=== PATIENT | male | born 1955 | race Caucasian/White ===

== ENCOUNTER → 2021-05-26 10:06 | Outpatient (CLI) | payer OTHER, SELFPAY ==
[2021-05-26 12:26] LABS: COVID19 -Nasal RAPID Negative (Negative)
== END ==
PROVIDERS: Referring Provider Orthopaedic Surgery; Visit Provider Family Medicine Sleep Medicine
DX: Z20.822 Contact with and (suspected) exposure to COVID-19 (principal)
CPT/HCPCS: 87635; C9803

== ENCOUNTER 2021-05-27 06:24 | Day surgery (SDC) | payer OTHER, SELFPAY ==
[2021-05-18 12:35] VITALS: BMI 41.9
[2021-05-27] VITALS (14 sets, daily range): BP systolic 128–166; BP diastolic 80–96; PULSE 50–75; RESP 12–16; TEMP 36–37; O2SAT 90–98; BMI 41.9
--- NOTE | 2021-05-27 06:35 | DI.RAD.S_ITS ---
PROCEDURE: XR KNEE RT 1TO2V INDICATIONS: prosthesis placement TECHNIQUE: 2 view(s) of the knee acquired. COMPARISON: None. FINDINGS: Bones: Patient is status post knee joint arthroplasty. Hardware components are in expected positions. Visualized bony structures are intact. Soft tissues: Overlying postoperative changes are noted. IMPRESSION: Well-positioned total knee arthroplasty Approved by: Tapan Nunn M.D. on 05/27/2021 at 11:49
[2021-05-27] MEDS: CELECOXIB 200 MG CAPSULE PO (07:02)
[2021-05-27] MEDS: ACETAMINOPHEN 325 MG TABLET 975 MG PO (07:02)
[2021-05-27] MEDS: LACTATED RINGERS 1,000 ML 42 ML IV (07:03)
--- NOTE | 2021-05-27 07:15 | PM.PREOP ---
Pre-operative Note COVID-19 COVID-19 status: Negative Result date/Date tested (Pos, Neg/Pending): 05/26/21 Interval Note History & Physical reviewed/Exam performed by Physician: Yes Changes to H&P: No
--- NOTE | 2021-05-27 07:15 | PM.OP.1 ---
Operative Date/Time/Diagnoses Date of procedure: 05/27/21 Time of procedure: 09:30 Pre-op diagnosis: Right knee osteoarthritis Post-op diagnosis: same Procedure & Clinicians Procedure: Right total knee replacement Same procedure as scheduled: Yes Indications: The patient has had progressively worsening right knee pain with radiographic changes consistent with arthritis. Non-operative management has failed and the patient has requested total knee replacement. The risks, benefits and alternatives to surgery were discussed with the patient prior to proceeding. Risks discussed included, but were not limited to, failure to relieve pain, stiffness, infection, nerve damage, deep venous thrombosis, pulmonary embolism, stroke, coma, heart attack, permanent paralysis and , as well as the potential need for eventual revision of the prosthetic. Surgeon: Gonzalo Sanon Welder Tech: Shira Collado Click Yes if Unassisted: No Anesthesia Type: General, Spinal and Local Operative Notes Findings: Severe medial and mild patellofemoral osteoarthritis. Relative preservation of the lateral compartment. Closure Type: primary Specimen(s): none sent Prosthetic devices, grafts, tissues, transplants, or devices: Implants used in this procedure were manufactured by the [employer] and Blued and included the BCS II Journey total knee replacement with a size 8 right Oxinium femoral component, a size 7 right non porous tibial base plate, a 9 mm cross-linked polyethylene tibial insert and a 41 mm oval Kae II patella. Applied: implant(s) Estimated Blood Loss (mL): 25 Blood products transfused: none Tourniquet time (min): 54 Procedure in detail: The patient was seen in the pre-operative area, where the patient identified the right knee as the operative site and this was marked with my initials. The patient received pre-operative antibiotics, and was taken to the operating room and placed on the operative table in the supine position. After satisfactory anesthesia, a time signal wirer out was performed. The right leg was encircled with a tourniquet about the proximal thigh, and the leg was prepared from the toes to the tourniquet with ChloroPrep in the usual fashion and draped through sterile drapes. The leg was elevated and exsanguinated with Eschmark bandage and the tourniquet inflated to 250 mmHg pressure. The knee was approached through an approximately 18 cm incision centered over the patella and carried into the knee through a medial parapatellar arthrotomy. The anterior osteophytes and soft tissues were removed. The rotational landmarks of Inglewood's line and the transepicondylar axis were marked on the femur with electrocautery, and intramedullary guide holes for the femur and tibia were created. The distal femoral cut was made in 6 degrees of valgus using the intramedullary guide at the primary cut setting. The proximal tibial cut was then made using the intramedullary guide, taking 9 mm of bone off the less involved side. The extension gap was checked and the rotation of the femoral component confirmed with the gap balancing system. The anterior, posterior and chamfer cuts were then made. The posterior osteophytes and soft tissues were then removed. The posterior capsule was injected with part of a mixture of 60 ml 0.25% Marcaine mixed with 20 ml Exparel and 4 mg of morphine for post-operative pain control. The remainder of this mixture was injected into the capsule and subcutaneous tissues during cement curing. The tibia was prepared with the rotation set by an extra medullary guide. Trial tibial and femoral components were then placed and the intercondylar notch cut through the femoral trial. Range of motion was 0-135 degrees, with good stability throughout the range. The patella was then cut to accommodate the patellar prosthetic. There was no need for a lateral release. The trials were then removed, and the femoral hole plugged with a bone plug. The bone was prepared with pulsatile lavage, and dried with a sponge. Cement was applied and the final prosthetics placed. Excess cement was removed during and after cement curing. After confirming there was no extruded cement posteriorly, the final tibial insert was placed. The knee was copiously irrigated and the tourniquet deflated. Hemostasis was obtained. The capsule was closed with interrupted # 2 polyester suture. The subcutaneous layer was closed with 3-0 Vicryl, and the skin with a running 3-0 V-Lock suture and Dermabond. An Aquacel Ag dressing was applied and the patient was taken to recovery having tolerated the procedure well. Complications: none Post-operative Condition: stable Disposition: PACU Plan for aftercare: The patient will be maintained on a standard total knee replacement protocol with weight bearing as tolerated. The patient will receive aspirin and sequential compression devices for DVT prophylaxis. The patient will be discharged home when safe for the home environment.
--- NOTE | 2021-05-27 07:19 | SUR.PREOP ---
Addendum entered by Tre Erazo R.N. 05/27/21 07:26: Spoke with Dr. Funk, she wanted the pt to have the ordered Lyrica this morning . Original Note: Ordered lyrica held, pt took his own dose of 150 mg prior to coming in today.
[2021-05-27] MEDS: PREGABALIN 75 MG CAPSULE PO (07:26)
[2021-05-27] MEDS: TRANEXAMIC ACID 1,000 MG VIAL 1000 MG INJ ×2 (08:10→09:15)
--- NOTE | 2021-05-27 08:32 | SUR.OPER ---
Supine on padded OR bed. Pillow under head, arms secured on padded armboards <90 degree abduction. Safety belt across torso. Non-operative leg secured with tape over blanket over lower leg. Operative leg secured in DeMayo/Senthil/Nathe positioner. Foam padded brace at thigh of operative leg. Directed and approved by surgeon.
[2021-05-27] MEDS: MORPHINE 4 MG/ML INJ INJ (08:42)
[2021-05-27] MEDS: BUPIVACAINE 0.25% (PF) 60 ML, EPINEPHrine 0.3 MG INJ (08:43)
[2021-05-27] MEDS: CEFAZOLIN 2 GM/20 ML SYRINGE IV (08:44)
[2021-05-27] MEDS: BUPIVACAINE LIPOSOME 266 MG/20 ML VIAL INJ (09:10)
[2021-05-27] MEDS: OXYCODONE IR 5 MG TABLET PO (10:26)
[2021-05-27] MEDS: ASPIRIN EC 81 MG TABLET PO (12:16)
--- NOTE | 2021-05-27 12:27 | SUR.PHASEII ---
Pt in Phase 2 fitted for walker here to take with him. Able to stand and walk with walker several steps. Pt in W/C to dress with at bedside.
== END 2021-05-27 12:38 | disposition home or self-care (01) ==
LOC: OR 06:28 → AC 09:51
PROVIDERS: Referring Provider Orthopaedic Surgery; Visit Provider Orthopaedic Surgery
PROC: 0SRC0JZ Replacement of Right Knee Joint with Synthetic Substitute, Open Approach (ICD-10-PCS; CPT 27447; principal; 2021-05-27 07:45)
DX: M17.11 Unilateral primary osteoarthritis, right knee (principal); E66.01 Morbid (severe) obesity due to excess calories; I10 Essential (primary) hypertension; G47.33 Obstructive sleep apnea (adult) (pediatric); E11.9 Type 2 diabetes mellitus without complications; Z68.41 Body mass index [BMI] 40.0-44.9, adult
CPT/HCPCS: 27447; 73560; 82962; C1776; C1713; C9290; J0171; J0690; J2270; J2405; J2704

== ENCOUNTER 2022-11-04 05:46 | Day surgery (SDC) | payer OTHER, SELFPAY ==
--- NOTE | 2022-11-04 | DI.RAD.S_ITS ---
PROCEDURE: XR LUMBAR SPINE 2-3V INDICATIONS: LAMINECTOMY TECHNIQUE: 2 intraoperative fluoroscopic views of the lumbar spine were acquired. COMPARISON: None. FINDINGS: Intraoperative fluoroscopic images shows surgical instrument placed posteriorly at L5-S1 level. IMPRESSION: Fluoro guidance was intraoperatively for laminectomy performed by the ordering physician. Dictated by: Markos Graec M.D. on 11/04/2022 at 9:20 Approved by: Markos Grace M.D. on 11/04/2022 at 9:21
[2022-11-04 06:59] VITALS: BP 173/101; PULSE 62; RESP 16; TEMP 36.2; O2SAT 98; BMI 38.4
[2022-11-04] MEDS: LACTATED RINGERS 1,000 ML 84 ML IV (07:25)
--- NOTE | 2022-11-04 07:37 | PM.PREOP ---
Pre-operative Note COVID-19 Criteria for continued procedure: Expected advancement of disease process, Possibility delay results in more complex future surgery or treatment, Increased loss of function, Continuing or worsening of significant or severe pain, Deterioration of the patient's condition or overall health and Delay expected to result in less-positive ultimate med/surg outcome Interval Note History & Physical reviewed/Exam performed by Physician: Yes Changes to H&P: No
[2022-11-04] MEDS: CEFAZOLIN VIAL 3 GM in SODIUM CHLORIDE 0.9% 100 ML IV (08:26)
--- NOTE | 2022-11-04 08:28 | SUR.OPER ---
Prone on spine table, head in foam head support, padded chest and pelvic supports, gel pad at knees, lower legs supported by pillows; nipples, genitalia and toes free of pressure, arms secured on foam padded arm boards at <90 degrees abduction. Tape over blanket at thigh secured to table.
[2022-11-04] MEDS: BUPIVACAINE 0.25% (PF) 30 ML, EPINEPHrine 0.15 MG INJ (08:43)
--- NOTE | 2022-11-04 08:53 | PM.OP.1 ---
Operative Date/Time/Diagnoses Date of procedure: 11/04/22 Time of procedure: 07:40 Pre-op diagnosis: 1. L4-5, L5-S1 spinal stenosis 2. Epidural lipomatosis Post-op diagnosis: same Procedure & Clinicians Procedure: 1. L5-S1 laminectomy 2. L4-5 right hemilaminectomy 3. Utilization of microsurgical technique and operating microscope Same procedure as scheduled: Yes Indications: Patient has been having chronic back pain and worsening lumbar radiculopathy and symptoms of neurogenic claudication. Patient failed multiple conservative management with worsening pain weakness and numbness in his lower extremity. Patient has been having difficulty performing activity of daily living. After discussing risks benefits of treatment options, patient elected proceed with surgery. Surgeon: Deedee Guevara Fishing Tool Technician Oil Well: Vane Sauceda Click Yes if Unassisted: No Anesthesia Type: General Operative Notes Closure Type: primary Specimen(s): none sent Estimated Blood Loss (mL): 5 Blood products transfused: none Procedure in detail: Patient was seen in the preoperative area. Risks and benefits of the surgery was discussed with the patient. Informed consent was obtained from the patient and placed in the chart. Surgical site was marked. Patient was taken to the operative room. General anesthesia was administered. Prophylactic antibiotic was given to the patient less than 30 min before the incision was made. Patient was placed into a prone position on the Nathan table. Patient's back was then prepped and draped in the sterile fashion. Time-out was performed at this time. Using AP and lateral C-arm imaging the interval between L4-5 L5-S1 was identified and marked on patient's back. A 1 inch incision 1 in from midline was made on the right side. The fascia was incised in line with skin incision. Globus MARS retractors was placed inside the incision and docked onto the L5 lamina. Using microsurgical technique and operating microscope, a L5 laminectomy was performed using a Kerrison rongeur. Liagamentum flavum was resected at the site of the laminotomy. Either side of the dura was exposed. Bilateral partial facetcomies was performed to further decompress the lateral recess. Patient was found to have significant amount of epidural lipomatosis further contributing to the severe spinal stenosis at this level. The epidural lipomas were carefully resected using pituitary and Kerrison rongeur. After the laminectomy was completed, the area medial lateral superior and inferior to the area of the laminectomy was inspected and explored using a micro curette. No other impinging structure was identified. The mars retractor was redirected over the L4-5 interval. Using microsurgical technique and operative microscope a hemilaminectomy was performed at L4-5 level. Kerrison rongeur a micro curette was used to free up the ligamentum flavum which was resected during the process of a hemilaminectomy for the further decompressing the epidural space and lateral recess. Patient was also found to have epidural lipomatosis at the L4-5 level. The epidural lipomatosis was also resected using Kerrison rongeur and pituitary to decompress the epidural space. Good decompression was accomplished at both levels after the laminectomy a hemilaminectomy was completed. The wound was then irrigated with sterile normal saline. 40 mg Depo-Medrol was placed into the epidural space. The deep fascia was closed with 1-0 Vicryl. The subcutaneous tissue was closed with 2-0 Vicryl. The skin was closed with skin shaq. Patient tolerated the procedure well. There were no complications. Patient was transferred recovery room in stable condition. Complications: none Post-operative Condition: stable Disposition: PACU Plan for aftercare: Discharge to home
[2022-11-04 09:08] VITALS: BP 149/74; PULSE 66; RESP 14; TEMP 36.2; O2SAT 100
[2022-11-04 09:12] VITALS: BP 112/52; PULSE 67; RESP 14; O2SAT 97
[2022-11-04 09:17] VITALS: BP 120/81; PULSE 67; RESP 13; O2SAT 96
[2022-11-04 09:30] VITALS: BP 121/78; PULSE 66; RESP 14; TEMP 36.1; O2SAT 98
== END 2022-11-04 09:45 | disposition home or self-care (01) ==
PROVIDERS: PCP Nurse Practitioner Family; Referring Provider Orthopaedic Surgery Orthopaedic Surgery of the Spine; Visit Provider Orthopaedic Surgery Orthopaedic Surgery of the Spine
PROC: (CPT 63047; principal; 2022-11-04 07:45)
DX: M48.062 Spinal stenosis, lumbar region with neurogenic claudication (principal); D17.79 Benign lipomatous neoplasm of other sites; M54.16 Radiculopathy, lumbar region
CPT/HCPCS: 63047; 63030; 72100; 76000; 82962; J0171; J0330; J0690; J1100; J2405; J2704; J2920; J3010

== ENCOUNTER 2023-07-06 06:16 | Day surgery (SDC) | payer OTHER, SELFPAY ==
[2023-06-29 15:01] VITALS: BMI 40.4
[2023-07-06] MEDS: LACTATED RINGERS 1,000 ML 42 ML IV ×3 (06:56→10:38)
[2023-07-06] MEDS: ACETAMINOPHEN 325 MG TABLET 975 MG PO (07:10)
[2023-07-06 07:13] VITALS: BP 144/82; PULSE 63; RESP 18; TEMP 35.9; O2SAT 97
--- NOTE | 2023-07-06 07:26 | PM.PREOP ---
Pre-operative Note Interval Note History & Physical reviewed/Exam performed by Physician: Yes Changes to H&P: No
[2023-07-06] MEDS: CEFAZOLIN VIAL 3 GM in SODIUM CHLORIDE 0.9% 100 ML IV (08:00)
--- NOTE | 2023-07-06 08:53 | SUR.OPER ---
Beach chair with shoulder positioner. Lower body on padded OR bed. Head in foam padded head cradle, secured with straps. Non-operative arm secured <90 degrees abduction. Pillow under knees. Safety belt at thigh. Cloth tape over blanket over lower legs.
[2023-07-06] MEDS: BUPIVACAINE 0.5% (PF) 30 ML, EPINEPHrine 0.15 MG INJ (09:03)
[2023-07-06] MEDS: EPINEPHrine 1 MG/ML 7 MG IRR (09:14)
--- NOTE | 2023-07-06 09:54 | PM.OP.1 ---
Operative Date/Time/Diagnoses Date of procedure: 07/06/23 Time of procedure: 08:30 Pre-op diagnosis: Right rotator cuff tear Post-op diagnosis: same Procedure & Clinicians Procedure: Arthroscopic right rotator cuff repair with subacromial decompression and extensive debridement Same procedure as scheduled: Yes Indications: High-grade partial tearing to the right supraspinatus as well as signs of impingement and AC joint arthritis. Surgeon: Leon Cox Reimbursement Rep: Franco Chapin Anesthesia Type: General Operative Notes Findings: High-grade almost full-thickness tear involving the right supraspinatus. Moderate grade articular tearing to the subscapularis as well as milder partial tearing to the infraspinatus. Early stage arthritic changes to the glenohumeral joint extensive degenerative changes throughout the labrum. Synovitis in the glenohumeral joint subacromial and subdeltoid space as well as bursitis in the subacromial and subdeltoid space. No sign of any significant tearing involving the proximal biceps. Arthritic changes to the AC joint. Closure Type: primary Applied: implant(s) (Arthrex speed bridge) Estimated Blood Loss (mL): 5 Procedure in detail: On date of service, Patient was met in the holding area. The operative site was signed and witnessed by the OR staff. The surgeries once again discussed with the patient and any remaining questions they had were answered fully. Patient was taken back to the operating theater and placed on the operating table in a supine position. Great care was taken to ensure that all bony prominences were properly padded. Patient was then placed into the beach chair position. The head and neck were properly positioned and secured. A timeout was performed verifying patient's name, procedure, and the operative site. The right upper extremity was then prepped and draped in the normal sterile fashion. Previously, the bony anatomy and portal sites were marked out as well as injected with Marcaine with epinephrine. An 11 blade was used to make an incision in the posterior aspect of the shoulder. The camera was placed, and a diagnostic shoulder scope was performed. Findings listed above. Next under direct visualization, a anterior portal was made. Shaver was brought in and extensive debridement of the degenerative changes to the labrum was performed. Shaver was also used to debride the synovitis in the glenohumeral joint as well as the mild partial tearing to the articular surface of the infraspinatus as well as subscapularis. Next the camera was placed into the subacromial space. A lateral portal was obtained under direct visualization. A combination of the shaver and vapor wand, a debridement of the inflamed tissue as well as inflamed bursa was performed. The lateral gutter was also cleaned out. There was a significant amount of bursitis and synovitis in both the subacromial and subdeltoid space. After this was all cleaned out, This gave us good visualization of the bursal aspect of the rotator cuff as well as the acromial arch. There was an obvious impingement lesion in the acromial arch. Next we turned our attention to the subacromial decompression. Next, a bur was then used to do a subacromial decompression. This allowed us to convert the acromion to a type I acromial. This also allowed us to shave down the bony lesion in the acromial space. The rasp was placed into the lateral portal as well as the anterior portal in order to do a complete subacromial decompression. We next turned our attention to the distal clavicle. Shaver was used to clean up the inferior osteophytes off the distal clavicle. We then turned our attention to the rotator cuff tear. Patient had a high-grade partial tear involving supraspinatus with almost complete tearing. Due to the acute nature of the tear the cuff was still very mobile and had not scarred in at all. We could very easily pull it back to the rotator cuff footprint. Using the bur, the rotator cuff footprint was decorticated down to bleeding bone. Next, 2 medial anchors were placed. One anteriorly 1 posteriorly. Each anchor had 2 strands of fiber tape for a speed bridge repair. The sutures from the posterior anchor were passed through the posterior aspect of the infraspinatus. Then the sutures from the anterior anchor was passed through the anterior aspect of the supraspinatus. When pulling on the sutures we were able to reduce the supraspinatus to their respective footprints. Next, a punch was used to make a hole in the bone for the 2 medial anchors. This was done also anteriorly and posteriorly. A single suture from the anterior medial anchor and a single suture from the posterior medial anchor were placed into the anterior lateral anchor allowing us to tenodesis the rotator cuff across the rotator cuff footprint for the supraspinatus. This was then repeated with the remaining suture both anteriorly and posteriorly. And these 2 sutures were placed into the posterior medial anchor and tenodesis posteriorly providing a crisscross pattern providing a secure repair of the supraspinatus. Back After the repair there was good coverage of the entire humeral head and a very secure repair of the rotator cuff. Shoulder was taken through range of motion and there was no sign of any other tearing. No sign of any impingement lesions. Camera and cannulas were removed. Portal sites were closed. Patient's shoulder was cleaned, dried, and dressed. Patient was extubated and taken to the PACU in stable condition. The assistance of a skilled nursing surgical services director was necessary during this procedure for arm positioning and helping with the repair of the rotator cuff tear. The case would have been much longer and more difficult had an assistant strength coach not been available. The services of the nursing surgical services director were necessary for this case. Complications: none Post-operative Condition: stable Disposition: PACU Plan for aftercare: Patient will follow our postoperative protocol for rotator cuff repair
[2023-07-06 10:25] VITALS: BP 107/84; PULSE 60; RESP 12; TEMP 36.1; O2SAT 88
[2023-07-06 10:28] VITALS: BP 136/107; PULSE 61; RESP 13; O2SAT 97
[2023-07-06 10:30] VITALS: BP 135/91; PULSE 59; RESP 11; O2SAT 98
[2023-07-06 10:33] VITALS: BP 149/98; PULSE 63; RESP 12; O2SAT 98
[2023-07-06] MEDS: OXYCODONE IR 5 MG TABLET PO ×2 (10:38→11:02)
[2023-07-06] MEDS: hydrOXYzine 50 MG/ML INJ 25 MG IM (10:39)
[2023-07-06] MEDS: ALBUTEROL/IPRATROPIUM 3 ML AMPUL INH (10:40)
[2023-07-06 10:49] VITALS: BP 149/75; PULSE 59; RESP 16; TEMP 36.2; O2SAT 98
== END 2023-07-06 11:06 | disposition home or self-care (01) ==
PROVIDERS: PCP Nurse Practitioner Family; Referring Provider Nurse Practitioner Family; Visit Provider Orthopaedic Surgery
PROC: (CPT 29827; principal; 2023-07-06 07:45)
DX: M75.111 Incomplete rotator cuff tear or rupture of right shoulder, not specified as traumatic (principal); M75.41 Impingement syndrome of right shoulder; M65.811 Other synovitis and tenosynovitis, right shoulder; M75.51 Bursitis of right shoulder
CPT/HCPCS: 29827; 29826; 29823; J0171; J0690; J1100; J1170; J1885; J2250; J2405; J2704; J3010; J3410